=== PATIENT | female | born 1995 | race Two or more races ===

== ENCOUNTER 2019-07-29 23:53 | Emergency (ER) | payer MEDICAID ==
[~2019-07-29] VITALS: Ht 147.3 cm; Wt 63.5 kg
[~2019-07-29 23:53] MED LIST: LAMO150T26 PO; PRE5T PO
[2019-07-30] MEDS ORDERED: SODIUM CHLORIDE 0.9% 1,000 ML IV ONE (01:45)
[2019-07-30 02:53] LABS: Mean Corpuscular Hemoglobin 22.1 pg (28.0-32.0)
[2019-07-30 02:54] LABS: Hematocrit 31.1 % (36.0-46.0); Hemoglobin 9.6 g/dL (12.2-16.2); Mean Corpuscular Hgb Conc. 30.9 g/dL (32.0-36.0); Mean Corpuscular Volume 71.5 fL (80.0-100.0); Platelet Count (auto) 359 10^3/uL (140-450); Red Blood Cells 4.35 10^6/uL (4.0-5.20); White Blood Cell 6.8 10^3/uL (4.4-10.8)
[2019-07-30 02:57] LABS: Red Cell Distribution Width 23.8 % (11.8-14.3)
[2019-07-30 02:58] LABS: Basophils % (manual) 0 (0.0-2.0); Blast Cells 0; Metamyelocytes % 0; Myelocytes % 0; Promyelocytes % 0; Reactive Lymphocytes 0
[2019-07-30 02:59] LABS: Albumin 3.2 g/dL (3.4-5.0); Calcium 8.9 mg/dL (8.5-10.1); Potassium 3.5 mmol/L (3.5-5.1)
[2019-07-30 03:01] VITALS: BP 102/52
[2019-07-30 03:02] LABS: BUN/Creatinine Ratio 24.1
[2019-07-30 03:04] LABS: Bilirubin, Total 0.2 mg/dL (0.2-1.0); Total Protein 7.3 g/dL (6.4-8.2)
[2019-07-30 03:11] LABS: Urine Bacteria FEW /hpf (None Seen); Urine Blood 2+ /uL (Negative); Urine Mucus FEW (None Seen); Urine Specific Gravity 1.012 (1.001-1.035); Urine Sperm PRESENT /hpf (None Seen); Urine WBC 14 /hpf (0 - 5)
[2019-07-30 06:14] LABS: Band Neutrophils % (manual) 3; Eosinophils % (manual) 1 (0-7); Lymphocytes % (manual) 31 (10.0-50.0); Monocytes % (manual) 6 (0-12)
== END 2019-07-30 05:46 | disposition home or self-care (01) ==
LOC: ER 23:55
DX: O20.0 Threatened abortion (principal); O23.41 Unspecified infection of urinary tract in pregnancy, first trimester; E86.0 Dehydration; Z79.899 Other long term (current) drug therapy; Z3A.01 Less than 8 weeks gestation of pregnancy
CPT/HCPCS: 36415; 76801; 80053; 81001; 84702; 85007; 85027; 96360; 99284; J7030